=== PATIENT | male | born 1985 | race Caucasian/White ===

== ENCOUNTER 2022-05-16 11:55 | Emergency (ER) | payer BC, SELFPAY ==
[2022-05-16 12:15] VITALS: BP 115/76; PULSE 62; RESP 20; TEMP 36.6; O2SAT 99
--- NOTE | 2022-05-16 13:18 | ED.URI ---
HPI - URI/Sore Throat General Chief Complaint: Upper Respiratory Infection Stated Complaint: Sore Throat Time Seen by Provider: 05/16/22 13:18 History of Present Illness HPI Narrative: 37 year old male presenting complaint sore throat for 2 days. She he endorses is nephew tested positive for strep yesterday and he has been in contact. He denies any associated. He is taking anything for symptoms. Review of Systems Review of Systems: CONSTITUTIONAL: Denies body aches, fever, chills, or sweats. EYES: Denies visual changes, redness, or discharge. ENT: Denies rhinorrhea, congestion, or otalgia. CARDIOVASCULAR: Denies chest pain, palpitations, or edema. RESPIRATORY: Denies dyspnea. GASTROINTESTINAL: Denies abdominal pain, nausea, vomiting, or diarrhea. SKIN: Denies rash, itching, or wounds. MUSCULOSKELETAL: Denies back pain, joint pain, or myalgia. NEUROLOGIC: Denies headache Exam Narrative: GENERAL: well-appearing EYES: conjunctivae clear ENT: Mucous membranes moist. TM pearly martell with normal light reflex bilaterally; no tragal tenderness. Oropharynx erythematous without lesions. No drooling, no hoarseness, no trismus, uvula midline. No tripod positioning, hot potato voice, or soft palate swelling. NECK: Supple. No lymphadenopathy CHEST: Clear to auscultation, breath sounds equal. HEART: Regular rate and rhythm. No murmur heard. SKIN: Warm, dry, no rash. NEURO: Alert and oriented x3. Course Course Emergency Course: Patient is aware of diagnosis, understands and agrees to treatment plan. Anticipatory guidance given. Patient agrees to follow-up as directed and is aware of reasons to seek care at the emergency department. Portions of this record may have been created with voice recognition software Level of Care: Express Care Visit Vital Signs Vital signs: Vital Signs Temperature 97.8 F 05/16/22 12:15 Pulse Rate 62 05/16/22 12:15 Respiratory Rate 20 05/16/22 12:15 Blood Pressure 115/76 05/16/22 12:15 Pulse Oximetry 99 05/16/22 12:15 Oxygen Delivery Room Air 05/16/22 12:15 Temperature 97.8 F 05/16/22 12:15 Pulse Rate 62 05/16/22 12:15 Respiratory Rate 20 05/16/22 12:15 Blood Pressure 115/76 05/16/22 12:15 Pulse Oximetry 99 05/16/22 12:15 Oxygen Delivery Room Air 05/16/22 12:15 MDM - URI/Sore Throat MDM Narrative Medical decision making narrative: strep result reviewed with pt. Advise supportive treatments. Patient is appropriate for outpatient treatment and follow-up. Differential Diagnosis Differential diagnosis: Likely upper respiratory infection, viral infection and pharyngitis Lab Data Labs: Strep Screen Presumptive Negative *(Reference Range: Negative)* Discharge Plan Discharge Clinical Impression: Pharyngitis Patient Disposition: Home, Self-Care Condition: Stable Instructions: Antibiotic Form, Pharyngitis (ED) Additional Instructions: Rapid strep swab was negative today You will be notified in a few days if the culture comes back positive for strep, and appropriate antibiotics will be called in at that time. if symptoms are due to a viral illness, it is not treated with antibiotics. Viral symptoms can be present for up to 10-14 days. Tylenol every 8 hours as needed for pain/fever Soft foods, cool liquids, warm tea. Gargle with warm saltwater twice a day. Chloraseptic spray and throat lozenges. Rest and stay hydrated. --Follow up with your PCP if symptoms are not improving, or sooner if symptoms are worsening. Go to the ER immediately if you cannot swallow your saliva, trouble breathing/wheezing, throat swelling, pain is persistent and severe Follow-up/Referrals: Micheline,Gagan Woods MD [Primary Care Provider] - Time of Disposition: 13:23
== END 2022-05-16 13:30 | disposition home or self-care (01) ==
PROVIDERS: Emergency Provider Nurse Practitioner Family; PCP Family Medicine
DX: J02.9 Acute pharyngitis, unspecified (principal)
CPT/HCPCS: 87081; 87880; 99203; G0463

== ENCOUNTER 2022-10-02 08:19 | Emergency (ER) | payer BC, SELFPAY ==
[2022-10-02 08:28] VITALS: BP 129/82; PULSE 100; RESP 18; TEMP 38.1; O2SAT 100
--- NOTE | 2022-10-02 08:33 | ED.URI ---
HPI - URI/Sore Throat General Chief Complaint: Upper Respiratory Infection Stated Complaint: Congestion,Headache,Cough Time Seen by Provider: 10/02/22 08:40 Source: patient and RN notes reviewed Mode of arrival: ambulatory Limitations: no limitations History of Present Illness HPI Narrative: 37-year-old male presented for complaint of fever of 103 and headache today. He endorses coughing for about one week, worse at night; sore throat, body aches and chills yesterday. Had one episode of vomiting 3 days ago which he attributed to bad [place] food. Also states he had sinus pressure and congestion about a week ago that has since resolved. Denies known sick contacts. Denies shortness of breath, chest pain, wheezing, or diarrhea. Taking tylenol and one dose of benadryl for symptoms. MD elicited complaint: cough Related Data Home Medications Medication Instructions Recorded Confirmed No Home Medications 05/16/22 10/02/22 Allergies Allergy/AdvReac Type Severity Reaction Status Date / Time Penicillins AdvReac Mild Hives Verified 10/02/22 08:22 Review of Systems Review of Systems: CONSTITUTIONAL: Endorses malaise, chills, sweats, fever EYES: Denies visual changes, redness, or discharge ENT: Denies rhinorrhea, congestion, sinus pain, otalgia CARDIOVASCULAR: Denies chest pain, palpitations, edema RESPIRATORY: Reports cough, post nasal drainage. Denies dyspnea GASTROINTESTINAL: Denies abdominal pain, nausea, vomiting, diarrhea SKIN: Denies rash or itching MUSCULOSKELETAL: Endorses myalgia NEUROLOGIC: Endorses headache PMF Past Medical History Medical History (Updated 10/02/22 @ 08:54 by Laine Morris, ALEC) No pertinent past medical history Exam Narrative: GENERAL: mildly Ill-appearing, nontoxic no acute distress. EYES: PERRLA, conjunctivae clear ENT: Mucous membranes moist. TMs pearly martell with dull light reflex bilaterally; no tragal tenderness. Oropharynx erythematous without lesions or exudate, no drooling, no hoarseness, no trismus, uvula midline. No tripod positioning, muffled voice, soft palate or pharyngeal wall bulging NECK: Supple. No lymphadenopathy CHEST: Clear to auscultation, breath sounds equal. No wheezing, rhonchi, rales, or stridor. No respiratory distress, speaks in full sentences. HEART: Regular rate and rhythm. No murmur heard. SKIN: Warm, dry, no rash. NEURO: Alert and oriented x3. PSYCH: Normal mood and affect Course Course Emergency Course: Patient is aware of diagnosis, understands and agrees to treatment plan. Anticipatory guidance given. Patient agrees to follow-up as directed and is aware of reasons to seek care at the emergency department. Portions of this record may have been created with voice recognition software Level of Care: Express Care Visit Vital Signs Vital signs: Vital Signs Temperature 100.6 F H 10/02/22 08:28 Pulse Rate 100 10/02/22 08:28 Respiratory Rate 18 10/02/22 08:28 Blood Pressure 129/82 10/02/22 08:28 Pulse Oximetry 100 10/02/22 08:28 Oxygen Delivery Room Air 10/02/22 08:28 Temperature 100.6 F H 10/02/22 08:28 Pulse Rate 100 10/02/22 08:28 Respiratory Rate 18 10/02/22 08:28 Blood Pressure 129/82 10/02/22 08:28 Pulse Oximetry 100 10/02/22 08:28 Oxygen Delivery Room Air 10/02/22 08:28 reviewed MDM - URI/Sore Throat MDM Narrative Medical decision making narrative: COVID positive. Strep and flu negative. Results reviewed with patient. Advised supportive measures and signs/symptoms to go to the ER. Pt is appropriate for outpt treatment and f/u. Differential Diagnosis Differential diagnosis: Likely upper respiratory infection, sinusitis, viral infection, influenza and pharyngitis Discharge Plan Discharge Clinical Impression: COVID-19 Patient Disposition: Home, Self-Care Condition: Stable Instructions: COVID-19 (Coronavirus Disease 2019) (ED) Additional Instructions: flu negative.
== END 2022-10-02 08:51 | disposition home or self-care (01) ==
PROVIDERS: Emergency Provider Nurse Practitioner Family; PCP Family Medicine
DX: U07.1 COVID-19 (principal)
CPT/HCPCS: 87081; 87426; 87804; 87880; 99213; C9803; G0463

== ENCOUNTER 2024-09-12 09:32 | Emergency (ER) | payer BC, SELFPAY ==
[2024-09-12 09:57] VITALS: BP 135/94; PULSE 81; RESP 18; TEMP 36.7; O2SAT 99
--- NOTE | 2024-09-12 09:57 | ED_ITS ---
HPI - URI/Sore Throat General Chief Complaint: Upper Respiratory Infection Stated Complaint: throat soreness and swelling History of Present Illness HPI Narrative: 39-year-old male presented for complaint of sore throat and subjective fever and chills. Onset yesterday. Son tested positive for strep throat a few days ago. Patient denies shortness of breath, wheezing, nausea vomiting, diarrhea or lethargy. Related Data Allergies Allergy/AdvReac Type Severity Reaction Status Date / Time Penicillins AdvReac Mild Hives Verified 09/12/24 09:55 Review of Systems Review of Systems: CONSTITUTIONAL: Denies body aches, malaise EYES: Denies visual changes, redness, or discharge. ENT: reports sore throat Denies rhinorrhea, congestion, or otalgia. CARDIOVASCULAR: Denies chest pain, palpitations, or edema. RESPIRATORY: Denies dyspnea. GASTROINTESTINAL: Denies abdominal pain, nausea, vomiting, or diarrhea. SKIN: Denies rash, itching, or wounds. [facility] Past Medical History Medical History (Updated 09/12/24 @ 09:58 by Laine Tejeda, [employer]) No pertinent past medical history Exam Narrative: GENERAL: well-appearing, no acute distress. EYES: conjunctivae clear ENT: Mucous membranes moist. TM pearly martell with normal light reflex bilaterally; no tragal tenderness. Oropharynx erythematous without lesions. Tonsils enlarged 1+ and without exudate. No drooling, no hoarseness, no trismus, uvula midline. No tripod positioning, hot potato voice, or soft palate swelling. NECK: Supple. No lymphadenopathy CHEST: Clear to auscultation, breath sounds equal. No respiratory distress, speaks in full sentences. HEART: Regular rate and rhythm. No murmur heard. SKIN: Warm, dry, no rash. NEURO: Alert and oriented x3. Course Course Emergency Course: Patient is aware of diagnosis, understands and agrees to treatment plan. Anticipatory guidance given. Patient agrees to follow-up as directed and is aware of reasons to seek care at the emergency department. Portions of this record may have been created with voice recognition software Level of Care: Express Care Visit Vital Signs Vital signs: Vital Signs Temperature 98.0 F 09/12/24 09:57 Pulse Rate 81 09/12/24 09:57 Respiratory Rate 18 09/12/24 09:57 Blood Pressure 135/94 H 09/12/24 09:57 Pulse Oximetry 99 09/12/24 09:57 Oxygen Delivery Room Air 09/12/24 09:57 Temperature 98.0 F 09/12/24 09:57 Pulse Rate 81 09/12/24 09:57 Respiratory Rate 18 09/12/24 09:57 Blood Pressure 135/94 H 09/12/24 09:57 Pulse Oximetry 99 09/12/24 09:57 Oxygen Delivery Room Air 09/12/24 09:57 MDM - URI/Sore Throat MDM Narrative Medical decision making narrative: POS strep result reviewed with pt. Advise supportive treatments. Patient is appropriate for outpatient treatment and follow-up. Differential Diagnosis Differential diagnosis: Likely upper respiratory infection, viral infection and pharyngitis Lab Data Labs: Lab Results 09/12/24 Range/Units 09:58 POC Grp A Strep Screen Positive (Negative) Discharge Plan Discharge Clinical Impression: Strep pharyngitis Patient Disposition: Home, Self-Care Condition: Stable Instructions: Antibiotic Form, Strep Throat (ED) Additional Instructions: - Take the antibiotic as directed. Fever and sore throat typically resolve within one to three days. Most patients can return to work after 12 to 24 hours of antibiotic therapy, provided you are fever free and otherwise well. -Eat and drink things that are easy to swallow, like soft foods, cool liquids, tea with honey, or popsicles . -Salt water gargles and/or may use topical anesthetic ( Chloraseptic spray) or lozenges to relieve dryness or throat pain -Alternate Tylenol and ibuprofen as needed for pain and fever as directed. -Frequent hand washing or hand photographer apprentice lithographic is one of the best ways to prevent spread of infection. Throw away the toothbrush after 24hours of antibiotic. -Follow up with primary care provider in 2-3 days if condition is not improving -Go to the ER if you have trouble breathing, cannot drink enough fluids, have muffled voice or drooling, difficulty opening your mouth, or severe swelling. Patient Language: Bulgarian Prescriptions: New clindamycin HCl [Cleocin HCl] 300 mg capsule 300 mg PO Q8H 10 Days Qty: 30 0RF Follow-up/Referrals: UNKNOWN,DOCTOR [Primary Care Provider] - Stand Alone Forms: Work/School Release IP Time of Disposition: 10:15
[2024-09-12 10:00] LABS: EDSTREPNEGPOS1 Positive (Negative)
== END 2024-09-12 10:27 | disposition home or self-care (01) ==
PROVIDERS: Emergency Provider Nurse Practitioner Family
DX: J02.0 Streptococcal pharyngitis (principal)
CPT/HCPCS: 87880; 99213; G0463